=== PATIENT | female | born 1985 | race Caucasian/White ===

== ENCOUNTER 2023-03-25 19:01 | Inpatient (IN) | payer OTHER ==
[2023-03-25] MEDS ORDERED: Sodium Chloride 0.9% 10 ML Syringe FLUSH PRN (19:44)
[2023-03-25] MEDS ORDERED: Misoprostol 200 MCG Tab PO PRN (19:44)
[2023-03-25] MEDS ORDERED: Tranexamic Acid 1,000 MG in Sodium Chloride 0.9% 100 ML IV PRN (19:44)
[2023-03-25] MEDS ORDERED: Sodium Chloride 0.9% 20 ML SDV IV PRN (19:44)
[2023-03-25] MEDS ORDERED: Water For Irrigation,Sterile 1,000 ML Container IRR PRN (19:44)
[2023-03-25] MEDS ORDERED: Methylergonovine 0.2 MG/1 ML Amp IM PRN (19:44)
[2023-03-25] MEDS ORDERED: Lidocaine 1% 50 ML MDV INJECT PRN (19:44)
[2023-03-25] MEDS ORDERED: Sodium Chloride 0.9% 2.5 ML Syringe FLUSH PRN (19:44)
[2023-03-25] MEDS ORDERED: Ondansetron 4 MG/2 ML SDV IVPUSH PRN (19:44)
[2023-03-25] MEDS ORDERED: Carboprost Tromethamine 250 MCG/1 mL Vial IM PRN (19:44)
[2023-03-25] MEDS ORDERED: Lactated Ringers 1,000 ML IV SCH (19:45)
[2023-03-25] MEDS ORDERED: Oxytocin/0.9 % Sodium Chloride 30 UNIT/500 ML BAG IV SCH (19:45)
[2023-03-25] MEDS ORDERED: Nalbuphine HCl 10 MG/ 1ML Amp IVPUSH PRN (19:49)
[2023-03-25] MEDS ORDERED: Ampicillin 2 GM in Sodium Chloride 0.9% 100 ML IV ONE (20:00)
[2023-03-25 20:35] LABS: HEMATOCRIT 38.9 % (36.0-46.0); HEMOGLOBIN 13.1 g/dL (12.0-16.0); MEAN CORPUSCULAR HGB CONC 33.7 g/dL (31.0-37.0); MEAN CORPUSCULAR VOLUME 92.2 fL (80.0-98.0); PLATELET COUNT,PLT 169 K/uL (150-400); RED BLOOD CELL COUNT 4.22 M/uL (4.30-5.90); WHITE BLOOD CELL COUNT,WBC 13.35 K/uL (4.0-11.0)
[2023-03-25] MEDS ORDERED: Ibuprofen 800 MG Tab PO PRN (22:21)
[2023-03-25] MEDS ORDERED: Docusate Sodium 100 MG Cap PO PRN (22:21)
[2023-03-25] MEDS ORDERED: Witch Hazel Medicated Pads 40/Jar TOP PRN (22:21)
[2023-03-25] MEDS ORDERED: oxyCODONE 5 MG Tab PO PRN (22:21)
[2023-03-25] MEDS ORDERED: Benzocaine/Menthol 20%-0.5% Spray 78 GM Cannister TOP PRN (22:21)
[2023-03-25] MEDS ORDERED: Ibuprofen 400 MG Tab PO PRN (22:21)
[2023-03-25] MEDS ORDERED: Lanolin 100% Cream 7 GM Tube TOP PRN (22:21)
[2023-03-25] MEDS ORDERED: Acetaminophen 500 MG Tab PO PRN ×2 (22:21)
[2023-03-25] MEDS ORDERED: Bisacodyl 10 MG Supp RECTAL PRN (22:21)
[2023-03-25 22:40] LABS: PH,UMBILICAL ARTERIAL 7.449 (7.18-7.38); PH,UMBILICAL VENOUS 7.427 (7.25-7.45)
[2023-03-26] MEDS ORDERED: Ampicillin 1 GM in Sodium Chloride 0.9% 50 ML IV SCH ×2
[2023-03-26 06:20] LABS: HEMOGLOBIN 11.5 g/dL (12.0-16.0)
[2023-03-27 17:51] VITALS: BP 120/77; PULSE 68
== END 2023-03-27 18:08 | disposition home or self-care (01) | DRG 807 ==
LOC: MW.OB 19:01 → MW.OBCHECK 19:01 → MW.OB 19:45 → OBSVTOIN 21:59 → MW.OB 03-26 01:41
PROVIDERS: ADMIT Obstetrics & Gynecology; ATTEND Obstetrics & Gynecology
PROC: 10E0XZZ Delivery of Products of Conception, External Approach (ICD-10-PCS; principal; 2023-03-25)
PROC: 10907ZC Drainage of Amniotic Fluid, Therapeutic from Products of Conception, Via Natural or Artificial Opening (ICD-10-PCS; 2023-03-25)
DX: O99.824 Streptococcus B carrier state complicating childbirth (principal); O26.893 Other specified pregnancy related conditions, third trimester; Z37.0 Single live birth; Z67.41 Type O blood, Rh negative; Z3A.39 39 weeks gestation of pregnancy
CPT/HCPCS: 36415; 59025; 59409; 82803; 85014; 85018; 85027; 86592; 86850; 86900; 86901; 93971-26-LT; 93971-LT; A9270-GY; J0290; J2590; J3490; J7120